=== PATIENT | female | born 1985 | race Asian ===

== ENCOUNTER 2017-01-27 11:00 | Inpatient (IN) | payer OTHER ==
[2017-01-27] VITALS (17 sets, daily range): BP systolic 108–140; BP diastolic 53–95
[~2017-01-27] VITALS: Ht 152.4 cm; Wt 62.1 kg
[~2017-01-27 11:00] MED LIST: EXTRA STRENGTH500 M1 PO; VITAFOL-OB+DHA1 EACH PO
[2017-01-27 11:52] LABS: BASOPHIL COUNT 0.1 K/uL (0-0.1); EOSINOPHIL (%) 1.2 % (0-5); EOSINOPHIL COUNT 0.2 K/uL (0-0.3); HEMATOCRIT 35.1 % (36.0-46.0); IMMATURE GRANULOCYTE (%) 1.7 % (0.0-0.7); IMMATURE GRANULOCYTE COUNT 0.2 K/uL; INSTRUMENT ABS NEUTROPHIL CT 8.7 K/uL; MCH 25.2 PG (29.0-34.0); MCHC 31.3 G/DL (30.0-36.0); MCV 80.3 FL (83-99); MONOCYTE (%) 7.9 % (3-12); NEUTROPHIL (%) 71.9 % (45-76); NEUTROPHIL COUNT 8.7 K/uL (1.8-6.4); PLATELET COUNT 289 K/uL (156-360); RBC DIS.WIDTH-CV 15.3 % (11.8-14.6); RBC DIS.WIDTH-SD 44.4 % (39-53); RED BLOOD COUNT 4.37 M/uL (3.80-5.20); WHITE BLOOD COUNT 12.1 K/uL (4.1-10.2)
[2017-01-27] MEDS ORDERED: IBUPROFEN800 MG PO (17:25)
[2017-01-28 08:03] VITALS: BP 102/67
[2017-01-28 14:56] VITALS: BP 117/69
[2017-01-29 07:18] VITALS: BP 111/67
== END 2017-01-29 14:15 | disposition home or self-care (01) | DRG 775 ==
LOC: LDRP-OP 11:00 → 2WEST 11:01 → LDRP-OP 02-25 13:07
PROVIDERS: Nurse Practitioner
PROC: 10E0XZZ Delivery of Products of Conception, External Approach (ICD-10-PCS; principal; 2017-01-27)
DX: O99.824 Streptococcus B carrier state complicating childbirth (principal); Z37.0 Single live birth; Z3A.40 40 weeks gestation of pregnancy
CPT/HCPCS: 85025; C1755; J2540; J2795; J3010; J7120